=== PATIENT | male | born 1980 | race Caucasian/White ===

== ENCOUNTER 2018-03-20 13:16 | Emergency (ER) | payer BC, MEDICAID ==
[~2018-03-20] VITALS: Ht 200.7 cm; Wt 225.0 kg
[~2018-03-20 13:16] MED LIST: BAC10T PO; DEXL30CA3 PO; FAMO10TA89 PO; HYDR1TAB PO; LANS15CA10 PO; LOP25T PO
[2018-03-20 13:18] VITALS: BP 173/114
[2018-03-20] MEDS ORDERED: HYDR-565 PO (15:38)
== END 2018-03-20 15:58 | disposition home or self-care (01) ==
LOC: ER 13:16
DX: M25.511 Pain in right shoulder (principal); R20.0 Anesthesia of skin; G89.29 Other chronic pain; I10 Essential (primary) hypertension; Z88.5 Allergy status to narcotic agent; Z88.6 Allergy status to analgesic agent; Z79.899 Other long term (current) drug therapy; Z98.890 Other specified postprocedural states
CPT/HCPCS: 73030; 99284; A4565

== ENCOUNTER 2022-12-31 15:04 | Emergency (ER) | payer BC, MEDICAID ==
[~2022-12-31] VITALS: Ht 198.1 cm; Wt 211.4 kg
[~2022-12-31 15:04] MED LIST changes: -LANS15CA10 PO; +LANS15CA14 PO
[2022-12-31 15:58] VITALS: BP 195/109
[2022-12-31] MEDS ORDERED: TRAM50TA2 PO (17:38)
[2022-12-31] MEDS ORDERED: PRED10TA23 PO (17:38)
[2022-12-31] MEDS ORDERED: COLC0.6T72 PO (17:38)
[2022-12-31] MEDS ORDERED: colchicine 0.6mg tablet PO ONE (17:40)
[2022-12-31] MEDS ORDERED: predniSONE 20 mg tablet PO ONE (17:40)
== END 2022-12-31 18:15 | disposition home or self-care (01) ==
LOC: ER 15:05
DX: M10.9 Gout, unspecified (principal); I10 Essential (primary) hypertension; Z88.5 Allergy status to narcotic agent; Z88.6 Allergy status to analgesic agent
CPT/HCPCS: 73630; 99283; J7512

== ENCOUNTER 2023-09-15 16:41 | Emergency (ER) | payer BC, MEDICAID ==
[~2023-09-15] VITALS: Ht 195.6 cm; Wt 221.4 kg
[~2023-09-15 16:41] MED LIST changes: +COLC0.6T72 PO
[2023-09-15] MEDS: ondansetron 4mg rapidly disintigrating tab PO ONE ×2 (18:08→20:02)
[2023-09-15] MEDS: oxyCODONE/APAP 10/325mg tablet PO ONE (20:02)
[2023-09-15 20:15] VITALS: BP 183/111; PULSE 120; RESP 20; TEMP 98.5; O2SAT 98
[2023-09-15] MEDS ORDERED: HYDR-3973 PO (20:20)
== END 2023-09-15 20:18 | disposition home or self-care (01) ==
LOC: ER 16:42
DX: S76.311A Strain of muscle, fascia and tendon of the posterior muscle group at thigh level, right thigh, initial encounter (principal); I10 Essential (primary) hypertension; M79.661 Pain in right lower leg; Z88.6 Allergy status to analgesic agent; Z88.5 Allergy status to narcotic agent; Z79.1 Long term (current) use of non-steroidal anti-inflammatories (NSAID); Z79.899 Other long term (current) drug therapy; Z87.891 Personal history of nicotine dependence; X58.XXXA Exposure to other specified factors, initial encounter; Y93.89 Activity, other specified; Y92.89 Other specified places as the place of occurrence of the external cause; Y99.8 Other external cause status
CPT/HCPCS: 71045; 93971; 99284